=== PATIENT | male | born 2000 | race Two or more races ===

== ENCOUNTER 2024-04-04 09:39 | Emergency (ER) | payer OTHER ==
[~2024-04-04] VITALS: Ht 162.6 cm; Wt 100.7 kg
[2024-04-04] MEDS ORDERED: IBUPROFEN 400 MG TABLET ONE (10:23)
[2024-04-04] MEDS: IBUPROFEN 400 MG TABLET PO ONE (10:28)
[2024-04-04 11:35] VITALS: BP 138/78; TEMP 98.2; O2SAT 98
== END 2024-04-04 11:36 | disposition home or self-care (01) ==
LOC: ER 09:44
DX: M25.512 Pain in left shoulder (principal); M79.642 Pain in left hand; W22.09XA Striking against other stationary object, initial encounter; Y93.89 Activity, other specified; Y92.488 Other paved roadways as the place of occurrence of the external cause; Y99.8 Other external cause status
CPT/HCPCS: 73030-TC; 73130-TC